=== PATIENT | female | born 1955 | race Caucasian/White ===

== ENCOUNTER 2018-08-21 12:17 | Inpatient (IN) | payer OTHER ==
[~2018-08-21] VITALS: Ht 152.4 cm; Wt 51.4 kg
[2018-08-21 16:05] LABS: BASOPHILS % 1.2 % (0.0-2.0); EOSINOPHILS % 0.9 % (0.0-5.0); HEMATOCRIT. 36.9 % (36.0-48.0); LYMPHOCYTES % 25.8 % (20.0-50.0); MEAN CORPUSCULAR HEMOGLOBIN 26.9 pg (28.0-32.0); MEAN CORPUSCULAR VOLUME 83.1 fL (81.0-99.0); MEAN PLATELET VOLUME 8.2 fl (7.4-10.4); MONOCYTES % 6.5 % (2.0-8.0); NEUTROPHILS % 65.6 % (40.0-76.0); PLATELET 283 x1000/uL (130-400); RED BLOOD CELL COUNT 4.44 mill/uL (4.2-5.4); RED CELL DISTRIBUTION WIDTH 21.2 % (11.6-14.6)
[2018-08-21 16:08] LABS: CHLORIDE 104 mEq/L (98-107)
[2018-08-21] MEDS ORDERED: FUROSEMIDE 100MG/10ML VIAL IV ONE (17:15)
[2018-08-21] MEDS ORDERED: INSULIN REGULAR (HUMULIN R) 300UNITS/3ML IV ONE (17:15)
[2018-08-21] MEDS ORDERED: SODIUM BICARBONATE 8.4% 1 MEQ/ML 50ML SYR IV ONE (17:15)
[2018-08-21] MEDS ORDERED: CALCIUM GLUCONATE 1,000 MG in DEXT 5% WATER 100 ML IV ONE (17:15)
[2018-08-21] MEDS ORDERED: DEXTROSE 50% WATER 50ML SYRINGE IV ONE (17:15)
[2018-08-21] MEDS ORDERED: ALBUTEROL (0.083%) 2.5MG/3ML NEB HHN SCH (17:30)
[2018-08-21] MEDS ORDERED: SODIUM POLYSTYRENE SULFONATE 15 G/60 ML BOT PO ONE (18:00)
[2018-08-21] MEDS ORDERED: ACETAMINOPHEN 325MG TABLET PO PRN (18:30)
[2018-08-21] MEDS ORDERED: DOCUSATE SODIUM 100MG CAPSULE PO PRN (18:30)
[2018-08-21] MEDS ORDERED: GUAIFENESIN 200MG/10ML SUGAR FREE UDC PO PRN (18:30)
[2018-08-21] MEDS ORDERED: HYDROCODONE/ACETAMINOPHEN 5/325MG TABLET PO PRN (18:30)
[2018-08-21] MEDS ORDERED: MAGNESIUM/ALUMINUM HYDROXIDE/SIMETHICONE 30ML UDC PO PRN (18:30)
[2018-08-21] MEDS ORDERED: ONDANSETRON HCL 4MG/2ML INJ IV PRN (18:30)
[2018-08-21] MEDS ORDERED: DIPHENHYDRAMINE 50MG/ML VIAL IV PRN (18:30)
[2018-08-21] MEDS ORDERED: CLONIDINE 0.1MG TABLET PO PRN (18:30)
[2018-08-21 19:14] LABS: PHOSPHORUS 5.4 mg/dL (2.5-4.9)
[2018-08-21] MEDS ORDERED: LIDOCAINE HCL 1% 20ML VIAL (Pyxis) INJ ONE (19:23)
[2018-08-21] MEDS ORDERED: SODIUM BICARBONATE 4% (2.4MEQ) 5ML VIAL IV ONE (19:24)
[2018-08-21 23:43] LABS: CREATINE KINASE MB FRACTION 2.4 ng/mL (0.5-3.6)
[2018-08-22] VITALS (23 sets, daily range): BP systolic 116–183; BP diastolic 44–69
[2018-08-22 09:44] LABS: BASOPHILS % 1.2 % (0.0-2.0); EOSINOPHILS % 1.1 % (0.0-5.0); HEMOGLOBIN. 10.5 g/dL (12.0-16.0); LYMPHOCYTES % 21.2 % (20.0-50.0); MEAN CORPUSCULAR HEMOGLOBIN 26.4 pg (28.0-32.0); MEAN CORPUSCULAR VOLUME 82.4 fL (81.0-99.0); MEAN PLATELET VOLUME 8.3 fl (7.4-10.4); MONOCYTES % 7.7 % (2.0-8.0); NEUTROPHILS % 68.8 % (40.0-76.0); PLATELET 238 x1000/uL (130-400); RED CELL DISTRIBUTION WIDTH 21.4 % (11.6-14.6)
[2018-08-22 10:04] LABS: CHLORIDE 107 mEq/L (98-107)
[2018-08-22 10:12] LABS: LDL CHOLESTEROL 111 mg/dL (5-100)
[2018-08-22 10:13] LABS: CREATINE KINASE 26 IU/L (26-192); HDL CHOLESTEROL 36 mg/dL (40-59)
[2018-08-22 10:15] LABS: CREATINE KINASE MB FRACTION 1.6 ng/mL (0.5-3.6)
[2018-08-22] MEDS ORDERED: CEFAZOLIN 1000MG PREMIX 50 ML IV ONE (10:45)
[2018-08-22] MEDS ORDERED: LIDOCAINE HCL 1% 20ML VIAL (Pyxis) INJ ONE (10:52)
[2018-08-22] MEDS ORDERED: FENTANYL CITRATE/PF 50MCG/ML 2ML VIAL ONE (10:52)
[2018-08-22] MEDS ORDERED: SODIUM BICARBONATE 4% (2.4MEQ) 5ML VIAL IV ONE (10:52)
[2018-08-22] MEDS ORDERED: HEPARIN 1000 UNITS/ML 10ML ONE (10:53)
[2018-08-22] MEDS ORDERED: IOHEXOL-300 100 ML BOTTLE ONE (10:53)
[2018-08-22] MEDS ORDERED: HEPARIN 5000 UNITS/ML VIAL IV NR (11:45)
[2018-08-22] MEDS ORDERED: HEPARIN 1000 UNITS/ML 10ML IV NR (11:46)
[2018-08-22] MEDS ORDERED: FENTANYL CITRATE/PF 50MCG/ML 2ML VIAL IV SCH (12:00)
[2018-08-22] MEDS ORDERED: ONDANSETRON HCL 4MG/2ML INJ ONE (12:32)
[2018-08-22] MEDS ORDERED: ONDANSETRON HCL 4MG/2ML INJ IV SCH (12:45)
[2018-08-23] VITALS: BP 125/51
[2018-08-23 04:00] VITALS: BP 129/53
[2018-08-23 06:39] LABS: BASOPHILS % 1.2 % (0.0-2.0); EOSINOPHILS % 1.3 % (0.0-5.0); HEMATOCRIT. 35.1 % (36.0-48.0); HEMOGLOBIN. 11.2 g/dL (12.0-16.0); LYMPHOCYTES % 25.2 % (20.0-50.0); MEAN CORPUSCULAR HEMOGLOBIN 26.7 pg (28.0-32.0); MEAN PLATELET VOLUME 8.1 fl (7.4-10.4); MONOCYTES % 7.3 % (2.0-8.0); PLATELET 226 x1000/uL (130-400); RED BLOOD CELL COUNT 4.18 mill/uL (4.2-5.4); RED CELL DISTRIBUTION WIDTH 22.1 % (11.6-14.6)
[2018-08-23] MEDS ORDERED: DEXTROSE 50% WATER 50ML SYRINGE IV PRN (06:45)
[2018-08-23] MEDS: BLOOD SUGAR DIAGNOSTIC STRIP TEST SCH ×2 (06:57→12:52)
[2018-08-23 08:00] VITALS: BP 141/55
[2018-08-23] MEDS: INSULIN LISPRO 100 UNITS/ML SUBCUT SCH ×2 (08:10→12:52)
[2018-08-23 12:00] VITALS: BP 130/52
[2018-08-23 16:36] VITALS: BP 130/52
== END 2018-08-23 17:09 | disposition home or self-care (01) | DRG 182 ==
LOC: ER 12:17 → 7WST 18:11 → EDBEDREQ 18:13 → ENRESERV 21:29
PROVIDERS: ADMIT Internal Medicine; ATTEND Internal Medicine
PROC: B54BZZA Ultrasonography of Right Lower Extremity Veins, Guidance (ICD-10-PCS; principal; 2018-08-21)
PROC: 06HY33Z Insertion of Infusion Device into Lower Vein, Percutaneous Approach (ICD-10-PCS; 2018-08-21)
PROC: 5A1D70Z Performance of Urinary Filtration, Intermittent, Less than 6 Hours Per Day (ICD-10-PCS; 2018-08-21)
PROC: 03C83ZZ Extirpation of Matter from Left Brachial Artery, Percutaneous Approach (ICD-10-PCS; 2018-08-22)
PROC: B5171ZZ Fluoroscopy of Left Subclavian Vein using Low Osmolar Contrast (ICD-10-PCS; 2018-08-22)
PROC: 05CF3ZZ Extirpation of Matter from Left Cephalic Vein, Percutaneous Approach (ICD-10-PCS; 2018-08-22)
PROC: B5181ZZ Fluoroscopy of Superior Vena Cava using Low Osmolar Contrast (ICD-10-PCS; 2018-08-22)
PROC: B5161ZZ Fluoroscopy of Right Subclavian Vein using Low Osmolar Contrast (ICD-10-PCS; 2018-08-22)
PROC: B31N1ZZ Fluoroscopy of Other Upper Arteries using Low Osmolar Contrast (ICD-10-PCS; 2018-08-22)
PROC: 03783ZZ Dilation of Left Brachial Artery, Percutaneous Approach (ICD-10-PCS; 2018-08-22)
PROC: 057F3ZZ Dilation of Left Cephalic Vein, Percutaneous Approach (ICD-10-PCS; 2018-08-22)
PROC: B51W1ZZ Fluoroscopy of Dialysis Shunt/Fistula using Low Osmolar Contrast (ICD-10-PCS; 2018-08-22)
PROC: B51V1ZZ Fluoroscopy of Other Veins using Low Osmolar Contrast (ICD-10-PCS; 2018-08-22)
PROC: 5A1D70Z Performance of Urinary Filtration, Intermittent, Less than 6 Hours Per Day (ICD-10-PCS; 2018-08-23)
DX: T82.868A Thrombosis due to vascular prosthetic devices, implants and grafts, initial encounter (principal); E11.22 Type 2 diabetes mellitus with diabetic chronic kidney disease; I12.0 Hypertensive chronic kidney disease with stage 5 chronic kidney disease or end stage renal disease; N18.6 End stage renal disease; E87.5 Hyperkalemia; E83.41 Hypermagnesemia; E78.00 Pure hypercholesterolemia, unspecified; E78.5 Hyperlipidemia, unspecified; E83.39 Other disorders of phosphorus metabolism; Y83.2 Surgical operation with anastomosis, bypass or graft as the cause of abnormal reaction of the patient, or of later complication, without mention of misadventure at the time of the procedure; Y92.89 Other specified places as the place of occurrence of the external cause; Z99.2 Dependence on renal dialysis; Z88.1 Allergy status to other antibiotic agents; Z88.8 Allergy status to other drugs, medicaments and biological substances
CPT/HCPCS: 36415; 36556; 36905; 71045; 76937; 80048; 80061; 82550; 82553; 82962; 83036; 83735; 84100; 84132; 84443; 86850; 86900; 93005; 93970; 96374; 96375; 99152; 99153; 99285; C1725; C1752; C1766; C1769; C1887; C2630; J0610; J0690; J1642; J1644; J1815; J1940; J2405; J3010; J3490; J7050; J7060; Q9967; G0500

== ENCOUNTER 2019-01-08 09:27 | Inpatient (IN) | payer OTHER ==
[~2019-01-08] VITALS: Ht 154.9 cm; Wt 48.6 kg
[2019-01-08 10:06] LABS: BASOPHILS % 1.4 % (0.0-2.0); EOSINOPHILS % 0.7 % (0.0-5.0); HEMATOCRIT. 32.7 % (36.0-48.0); HEMOGLOBIN. 10.7 g/dL (12.0-16.0); LYMPHOCYTES % 18.2 % (20.0-50.0); MEAN CORPUSCULAR HEMOGLOBIN 26.9 pg (28.0-32.0); MEAN CORPUSCULAR VOLUME 81.7 fL (81.0-99.0); MEAN PLATELET VOLUME 8.6 fl (7.4-10.4); NEUTROPHILS % 75.7 % (40.0-76.0); PLATELET 250 x1000/uL (130-400); RED CELL DISTRIBUTION WIDTH 20.4 % (11.6-14.6)
[2019-01-08 10:11] LABS: CHLORIDE 103 mEq/L (98-107)
[2019-01-08 10:13] LABS: PROTHROMBIN TIME 10.5 sec (9.6-11.0)
[2019-01-08] MEDS ORDERED: INSULIN REGULAR (HUMULIN R) 300UNITS/3ML IV ONE (10:30)
[2019-01-08] MEDS ORDERED: SODIUM BICARBONATE 8.4% 1 MEQ/ML 50ML SYR IV ONE (10:30)
[2019-01-08] MEDS ORDERED: ALBUTEROL (0.083%) 2.5MG/3ML NEB HHN ONE (10:30)
[2019-01-08] MEDS ORDERED: CALCIUM CHLORIDE 1GM/10ML SYR IV ONE (10:30)
[2019-01-08] MEDS ORDERED: DEXTROSE 50% WATER 50ML SYRINGE IV ONE ×2 (10:30→12:33)
[2019-01-08 15:42] VITALS: BP 142/52
[2019-01-08 16:00] VITALS: BP 139/64
[2019-01-08] MEDS ORDERED: AMLO10TA80 MT (17:46)
[2019-01-08] MEDS ORDERED: CINA90TA MT (17:46)
[2019-01-08] MEDS ORDERED: OMEG100016 PO (17:46)
[2019-01-08] MEDS ORDERED: REN800 PO (17:46)
[2019-01-08] MEDS ORDERED: METO-539 MT (17:47)
[2019-01-08 18:00] VITALS: BP 129/62
[2019-01-08] MEDS ORDERED: MAGNESIUM/ALUMINUM HYDROXIDE/SIMETHICONE 30ML UDC PO PRN (18:00)
[2019-01-08] MEDS ORDERED: ONDANSETRON HCL 4MG/2ML INJ IV PRN (18:00)
[2019-01-08] MEDS ORDERED: IPRATROPIUM/ALBUTEROL 0.5-3(2.5)MG/3ML NEB HHN PRN (18:00)
[2019-01-08] MEDS ORDERED: HYDROCODONE/ACETAMINOPHEN 5/325MG TABLET PO PRN (18:00)
[2019-01-08] MEDS ORDERED: ACETAMINOPHEN 325MG TABLET PO PRN (18:00)
[2019-01-08] MEDS ORDERED: DOCUSATE SODIUM 100MG CAPSULE PO PRN (18:00)
[2019-01-08] MEDS ORDERED: LORAZEPAM 0.5MG TABLET PO PRN (18:00)
[2019-01-08 20:00] VITALS: BP 142/73
[2019-01-08 22:00] VITALS: BP 130/55
[2019-01-09] VITALS (28 sets, daily range): BP systolic 117–157; BP diastolic 51–69
[2019-01-09 07:03] LABS: EOSINOPHILS % 0.8 % (0.0-5.0); HEMATOCRIT. 27.6 % (36.0-48.0); HEMOGLOBIN. 9.1 g/dL (12.0-16.0); LYMPHOCYTES % 19.8 % (20.0-50.0); MEAN CORPUSCULAR HEMOGLOBIN 26.8 pg (28.0-32.0); MEAN CORPUSCULAR VOLUME 81.1 fL (81.0-99.0); MEAN PLATELET VOLUME 8.7 fl (7.4-10.4); MONOCYTES % 7.3 % (2.0-8.0); NEUTROPHILS % 71.1 % (40.0-76.0); PLATELET 185 x1000/uL (130-400); RED CELL DISTRIBUTION WIDTH 19.8 % (11.6-14.6)
[2019-01-09] MEDS: SEVELAMER CARBONATE 800 MG TABLET PO SCH ×2 (07:20→12:20)
[2019-01-09] MEDS ORDERED: LIDOCAINE HCL 1% 20ML VIAL (Pyxis) INJ ONE (07:38)
[2019-01-09] MEDS ORDERED: IOHEXOL-300 100 ML BOTTLE ONE (07:38)
[2019-01-09] MEDS ORDERED: SODIUM BICARBONATE 4% (2.4MEQ) 5ML VIAL IV ONE (07:38)
[2019-01-09] MEDS ORDERED: CEFAZOLIN 1000MG PREMIX 50 ML IV NR (08:00)
[2019-01-09] MEDS ORDERED: HEPARIN 1000 UNITS/ML 10ML ONE (08:05)
[2019-01-09] MEDS ORDERED: CEFAZOLIN 1000MG PREMIX 50 ML IV ONE (08:10)
[2019-01-09] MEDS ORDERED: FENTANYL CITRATE/PF 50MCG/ML 2ML VIAL ONE (08:11)
[2019-01-09] MEDS ORDERED: AMLODIPINE 10MG TABLET PO SCH (09:00)
[2019-01-09] MEDS ORDERED: HEPARIN 5000 UNITS/ML VIAL IV ONE (09:00)
[2019-01-09] MEDS ORDERED: METOPROLOL TARTRATE 50MG TABLET PO SCH (09:00)
[2019-01-09] MEDS ORDERED: CINACALCET HCL 90MG TABLET PO SCH (09:00)
[2019-01-09] MEDS ORDERED: ONDANSETRON HCL 4MG/2ML INJ ONE (09:19)
[2019-01-09] MEDS ORDERED: ONDANSETRON HCL 4MG/2ML INJ IV NR (09:30)
[2019-01-09] MEDS ORDERED: FENTANYL CITRATE/PF 50MCG/ML 2ML VIAL IV NR (09:30)
== END 2019-01-09 15:50 | disposition home or self-care (01) | DRG 182 ==
LOC: ER 09:27 → 3WST 10:49 → EDBEDREQTM 10:56 → ENRESERV 14:43
PROVIDERS: ADMIT Internal Medicine; ATTEND Internal Medicine
PROC: 5A1D70Z Performance of Urinary Filtration, Intermittent, Less than 6 Hours Per Day (ICD-10-PCS; principal; 2019-01-08)
PROC: 06HY33Z Insertion of Infusion Device into Lower Vein, Percutaneous Approach (ICD-10-PCS; 2019-01-08)
PROC: B54BZZA Ultrasonography of Right Lower Extremity Veins, Guidance (ICD-10-PCS; 2019-01-08)
PROC: B51W1ZZ Fluoroscopy of Dialysis Shunt/Fistula using Low Osmolar Contrast (ICD-10-PCS; 2019-01-09)
PROC: 03C83ZZ Extirpation of Matter from Left Brachial Artery, Percutaneous Approach (ICD-10-PCS; 2019-01-09)
PROC: 057A3ZZ Dilation of Left Brachial Vein, Percutaneous Approach (ICD-10-PCS; 2019-01-09)
PROC: B51N1ZZ Fluoroscopy of Left Upper Extremity Veins using Low Osmolar Contrast (ICD-10-PCS; 2019-01-09)
PROC: B5181ZZ Fluoroscopy of Superior Vena Cava using Low Osmolar Contrast (ICD-10-PCS; 2019-01-09)
PROC: B31J1ZZ Fluoroscopy of Left Upper Extremity Arteries using Low Osmolar Contrast (ICD-10-PCS; 2019-01-09)
PROC: 05CA3ZZ Extirpation of Matter from Left Brachial Vein, Percutaneous Approach (ICD-10-PCS; 2019-01-09)
DX: T82.868A Thrombosis due to vascular prosthetic devices, implants and grafts, initial encounter (principal); E87.2 Acidosis; E83.51 Hypocalcemia; E87.1 Hypo-osmolality and hyponatremia; I12.0 Hypertensive chronic kidney disease with stage 5 chronic kidney disease or end stage renal disease; N18.6 End stage renal disease; D64.9 Anemia, unspecified; E78.5 Hyperlipidemia, unspecified; E87.5 Hyperkalemia; T82.858A Stenosis of other vascular prosthetic devices, implants and grafts, initial encounter; E16.2 Hypoglycemia, unspecified; Y83.2 Surgical operation with anastomosis, bypass or graft as the cause of abnormal reaction of the patient, or of later complication, without mention of misadventure at the time of the procedure; Y92.89 Other specified places as the place of occurrence of the external cause; Z99.2 Dependence on renal dialysis; Z88.1 Allergy status to other antibiotic agents; Z68.20 Body mass index [BMI] 20.0-20.9, adult
CPT/HCPCS: 36415; 36905; 76937; 80048; 82962; 84132; 93005; 99152; 99153; 99291; C1725; C1752; C1766; C1769; C2630; J0690; J1644; J1815; J2405; J3010; J3490; J7611; Q9967; G0500

== ENCOUNTER 2019-05-28 15:47 | Inpatient (IN) | payer OTHER ==
[~2019-05-28] VITALS: Ht 154.9 cm; Wt 47.4 kg
[~2019-05-28 15:47] MED LIST: AMLO10TA80 MT; CINA90TA MT; METO-539 MT; OMEG100016 PO; REN800 PO
[2019-05-28 17:29] LABS: BASOPHILS % 1.1 % (0.0-2.0); EOSINOPHILS % 1.1 % (0.0-5.0); HEMATOCRIT. 30.5 % (36.0-48.0); HEMOGLOBIN. 9.9 g/dL (12.0-16.0); MEAN CORPUSCULAR HEMOGLOBIN 28.2 pg (28.0-32.0); MEAN CORPUSCULAR VOLUME 86.4 fL (81.0-99.0); MEAN PLATELET VOLUME 9.1 fl (7.4-10.4); MONOCYTES % 6.4 % (2.0-8.0); NEUTROPHILS % 72.4 % (40.0-76.0); PLATELET 253 x1000/uL (130-400); RED BLOOD CELL COUNT 3.53 mill/uL (4.2-5.4); RED CELL DISTRIBUTION WIDTH 15.6 % (11.6-14.6)
[2019-05-28 17:41] LABS: PROTHROMBIN TIME 10.2 sec (9.6-11.0)
[2019-05-28] MEDS ORDERED: DEXTROSE 50% WATER 50ML SYRINGE IV ONE (18:00)
[2019-05-28] MEDS ORDERED: ALBUTEROL (0.083%) 2.5MG/3ML NEB HHN ONE (18:00)
[2019-05-28] MEDS ORDERED: SODIUM BICARBONATE 8.4% 1 MEQ/ML 50ML SYR IV ONE (18:00)
[2019-05-28] MEDS ORDERED: INSULIN REGULAR (HUMULIN R) 300UNITS/3ML IV ONE (18:00)
[2019-05-28] MEDS ORDERED: SODIUM POLYSTYRENE SULFONATE 15 G/60 ML BOT PO NR (18:00)
[2019-05-28] MEDS ORDERED: CALCIUM CHLORIDE 1GM/10ML SYR IV ONE (18:00)
[2019-05-28] MEDS ORDERED: SODIUM POLYSTYRENE SULFONATE 15 G/60 ML BOT PO ONE (18:15)
[2019-05-28] MEDS ORDERED: MAGNESIUM/ALUMINUM HYDROXIDE/SIMETHICONE 30ML UDC PO PRN (18:45)
[2019-05-28] MEDS ORDERED: CLONIDINE 0.1MG TABLET PO PRN (18:45)
[2019-05-28] MEDS ORDERED: HYDROCODONE/ACETAMINOPHEN 5/325MG TABLET PO PRN (18:45)
[2019-05-28] MEDS ORDERED: ONDANSETRON HCL 4MG/2ML INJ IV PRN (18:45)
[2019-05-28] MEDS ORDERED: ACETAMINOPHEN 325MG TABLET PO PRN (18:45)
[2019-05-28] MEDS ORDERED: DOCUSATE SODIUM 100MG CAPSULE PO PRN (18:45)
[2019-05-28] MEDS ORDERED: MORPHINE SULFATE 2 MG/ML CPJ (NOT FOR IM USE) IV PRN (19:20)
[2019-05-28] MEDS: AMLODIPINE 10MG TABLET PO SCH (23:14)
[2019-05-29] VITALS (20 sets, daily range): BP systolic 25–158; BP diastolic 47–65
[2019-05-29] MEDS ORDERED: ALBUTEROL (0.083%) 2.5MG/3ML NEB HHN ONE (02:15)
[2019-05-29 05:08] LABS: BASOPHILS % 0.8 % (0.0-2.0); EOSINOPHILS % 0.2 % (0.0-5.0); HEMATOCRIT. 26.7 % (36.0-48.0); HEMOGLOBIN. 8.8 g/dL (12.0-16.0); LYMPHOCYTES % 17.3 % (20.0-50.0); MEAN CORPUSCULAR HEMOGLOBIN 28.5 pg (28.0-32.0); MEAN CORPUSCULAR VOLUME 86.9 fL (81.0-99.0); MEAN PLATELET VOLUME 8.9 fl (7.4-10.4); MONOCYTES % 5.6 % (2.0-8.0); NEUTROPHILS % 76.1 % (40.0-76.0); PLATELET 227 x1000/uL (130-400); RED BLOOD CELL COUNT 3.07 mill/uL (4.2-5.4); RED CELL DISTRIBUTION WIDTH 15.4 % (11.6-14.6)
[2019-05-29 05:13] LABS: CHLORIDE 109 mEq/L (98-107)
[2019-05-29 05:21] LABS: LDL CHOLESTEROL 64 mg/dL (5-100)
[2019-05-29 05:24] LABS: HDL CHOLESTEROL 31 mg/dL (40-59)
[2019-05-29] MEDS: AMLODIPINE 10MG TABLET PO SCH (12:30)
[2019-05-29] MEDS ORDERED: MOXI3DRO12 RIGHTEYE (12:35)
[2019-05-29] MEDS ORDERED: OFLO5DRO3 RIGHTEYE (12:35)
[2019-05-29] MEDS ORDERED: KETO5DRO80 RIGHTEYE (12:35)
[2019-05-29] MEDS ORDERED: PRED5DRO22 RIGHTEYE (12:35)
[2019-05-29] MEDS ORDERED: MEDICATION NOT ON FORMULARY EA (Moxifloxacin HCl (Moxifloxacin) 1 DROP) RIGHTEYE SCH (13:00)
[2019-05-29] MEDS ORDERED: OFLOXACIN RIGHTEYE SCH (13:00)
[2019-05-29] MEDS ORDERED: CEFAZOLIN 1000MG PREMIX 50 ML IV ONE (13:15)
[2019-05-29] MEDS ORDERED: FENTANYL CITRATE/PF 50MCG/ML 2ML VIAL ONE (13:15)
[2019-05-29] MEDS ORDERED: SODIUM BICARBONATE 4% (2.4MEQ) 5ML VIAL IV ONE (13:19)
[2019-05-29] MEDS ORDERED: IOHEXOL-300 100 ML BOTTLE ONE ×2 (13:19→14:06)
[2019-05-29] MEDS ORDERED: LIDOCAINE HCL 1% 20ML VIAL (Pyxis) INJ ONE (13:19)
[2019-05-29] MEDS ORDERED: CEFAZOLIN 1000MG PREMIX 50 ML IV SCH (13:45)
[2019-05-29] MEDS ORDERED: IOHEXOL-300 50 ML BOTTLE IV ONE (14:36)
[2019-05-29] MEDS ORDERED: FENTANYL CITRATE/PF 50MCG/ML 2ML VIAL IV ONE (14:45)
[2019-05-29] MEDS: KETOROLAC TROMETHAMINE 0.4% OPHTH 5ML RIGHTEYE SCH ×3 (15:16→22:36)
[2019-05-29] MEDS: MOXIFLOXACIN 0.5% RIGHTEYE SCH ×2 (15:17→22:41)
[2019-05-29] MEDS: PREDNISOLONE ACETATE 1% OPHTH DROPS 5ML RIGHTEYE SCH ×2 (17:50→22:36)
[2019-05-30] VITALS (7 sets, daily range): BP systolic 95–139; BP diastolic 50–69
[2019-05-30] MEDS: MOXIFLOXACIN 0.5% RIGHTEYE SCH ×2 (06:49→13:33)
[2019-05-30] MEDS: AMLODIPINE 10MG TABLET PO SCH (09:09)
[2019-05-30] MEDS: PREDNISOLONE ACETATE 1% OPHTH DROPS 5ML RIGHTEYE SCH ×3 (09:10→18:45)
[2019-05-30] MEDS: KETOROLAC TROMETHAMINE 0.4% OPHTH 5ML RIGHTEYE SCH ×3 (09:11→18:44)
[2019-05-30] MEDS: CALCIUM ACETATE 667MG CAPSULE PO SCH ×2 (18:45→22:08)
[2019-05-30] MEDS ORDERED: EPOETIN ALFA 4000UNITS/ML VIAL SUBCUT SCH (21:00)
== END 2019-05-30 23:45 | disposition home or self-care (01) | DRG 182 ==
LOC: ER 15:47 → 6WST 19:56 → EDBEDREQSVC 05-29 08:24 → ENRESERV 05-29 09:54
PROVIDERS: ADMIT Hospitalist; ATTEND Hospitalist
PROC: 05CA3ZZ Extirpation of Matter from Left Brachial Vein, Percutaneous Approach (ICD-10-PCS; principal; 2019-05-29)
PROC: B51W1ZZ Fluoroscopy of Dialysis Shunt/Fistula using Low Osmolar Contrast (ICD-10-PCS; 2019-05-29)
PROC: 057A3DZ Dilation of Left Brachial Vein with Intraluminal Device, Percutaneous Approach (ICD-10-PCS; 2019-05-29)
PROC: 5A1D70Z Performance of Urinary Filtration, Intermittent, Less than 6 Hours Per Day (ICD-10-PCS; 2019-05-29)
PROC: 5A1D70Z Performance of Urinary Filtration, Intermittent, Less than 6 Hours Per Day (ICD-10-PCS; 2019-05-30)
DX: T82.868A Thrombosis due to vascular prosthetic devices, implants and grafts, initial encounter (principal); I13.2 Hypertensive heart and chronic kidney disease with heart failure and with stage 5 chronic kidney disease, or end stage renal disease; E87.5 Hyperkalemia; N18.6 End stage renal disease; I50.33 Acute on chronic diastolic (congestive) heart failure; D63.1 Anemia in chronic kidney disease; E78.1 Pure hyperglyceridemia; E78.5 Hyperlipidemia, unspecified; E78.00 Pure hypercholesterolemia, unspecified; Y83.2 Surgical operation with anastomosis, bypass or graft as the cause of abnormal reaction of the patient, or of later complication, without mention of misadventure at the time of the procedure; N25.81 Secondary hyperparathyroidism of renal origin; Z88.8 Allergy status to other drugs, medicaments and biological substances; Z99.2 Dependence on renal dialysis; Z79.899 Other long term (current) drug therapy; Y92.89 Other specified places as the place of occurrence of the external cause
CPT/HCPCS: 36415; 36906; 71045; 76937; 80048; 80053; 80061; 82962; 85025; 93005; 93971; 94644; 96365; 99152; 99153; 99291; C1725; C1766; C1769; C1876; C1887; C2630; J0690; J0885; J1644; J1815; J3010; J3490; Q9967; G0500

== ENCOUNTER 2020-01-16 16:04 | Inpatient (IN) | payer MEDICAID, OTHER ==
[~2020-01-16] VITALS: Ht 152.4 cm; Wt 45.9 kg
[~2020-01-16 16:04] MED LIST changes: +KETO5DRO80 RIGHTEYE; +MOXI3DRO12 RIGHTEYE; +OFLO5DRO3 RIGHTEYE; +PRED5DRO22 RIGHTEYE
[2020-01-16 16:45] LABS: BASOPHILS % 1.3 % (0.0-2.0); EOSINOPHILS % 1.6 % (0.0-5.0); HEMATOCRIT. 34.8 % (36.0-48.0); HEMOGLOBIN. 11.2 g/dL (12.0-16.0); MEAN CORPUSCULAR HEMOGLOBIN 25.4 pg (28.0-32.0); MEAN CORPUSCULAR VOLUME 78.8 fL (81.0-99.0); MEAN PLATELET VOLUME 8.3 fl (7.4-10.4); MONOCYTES % 7.1 % (2.0-8.0); PLATELET 295 x1000/uL (130-400); RED BLOOD CELL COUNT 4.41 mill/uL (4.2-5.4); RED CELL DISTRIBUTION WIDTH 17.8 % (11.6-14.6)
[2020-01-16 16:56] LABS: PROTHROMBIN TIME 10.7 sec (9.6-11.0)
[2020-01-16 17:12] LABS: CHLORIDE 100 mEq/L (98-107)
[2020-01-16] MEDS ORDERED: SODIUM POLYSTYRENE SULFONATE 15 G/60 ML BOT PO ONE (17:45)
[2020-01-16] MEDS ORDERED: SODIUM BICARBONATE 8.4% 1 MEQ/ML 50ML SYR IV ONE (17:45)
[2020-01-16] MEDS ORDERED: INSULIN REGULAR (HUMULIN R) 300UNITS/3ML IV ONE (17:45)
[2020-01-16] MEDS ORDERED: DEXTROSE 50% WATER 50ML SYRINGE IV ONE (17:45)
[2020-01-16] MEDS ORDERED: ALBUTEROL (0.083%) 2.5MG/3ML NEB HHN ONE (17:45)
[2020-01-16 21:34] VITALS: BP 161/75
[2020-01-16] MEDS ORDERED: OMEP20CA14 PO (23:42)
[2020-01-16] MEDS ORDERED: REN800 PO (23:42)
[2020-01-16] MEDS ORDERED: LOSA50TA41 PO (23:42)
[2020-01-16] MEDS ORDERED: OFLO5DRO3 RIGHTEYE (23:42)
[2020-01-17] VITALS (21 sets, daily range): BP systolic 110–194; BP diastolic 52–83
[2020-01-17] MEDS ORDERED: CLONIDINE 0.1MG TABLET PO PRN (00:45)
[2020-01-17] MEDS ORDERED: CLONIDINE 0.2MG TABLET PO PRN (05:16)
[2020-01-17 06:16] LABS: BASOPHILS % 1.1 % (0.0-2.0); EOSINOPHILS % 1.6 % (0.0-5.0); HEMATOCRIT. 31.8 % (36.0-48.0); HEMOGLOBIN. 10.1 g/dL (12.0-16.0); MEAN CORPUSCULAR HEMOGLOBIN 25.5 pg (28.0-32.0); MEAN CORPUSCULAR VOLUME 80.1 fL (81.0-99.0); MEAN PLATELET VOLUME 8.8 fl (7.4-10.4); MONOCYTES % 6.8 % (2.0-8.0); NEUTROPHILS % 66.5 % (40.0-76.0); PLATELET 260 x1000/uL (130-400); RED BLOOD CELL COUNT 3.97 mill/uL (4.2-5.4); RED CELL DISTRIBUTION WIDTH 17.8 % (11.6-14.6)
[2020-01-17] MEDS: SEVELAMER CARBONATE 800 MG TABLET PO SCH ×3 (08:00→17:32)
[2020-01-17] MEDS: KETOROLAC TROMETHAMINE 0.4% OPHTH 5ML RIGHTEYE SCH ×4 (09:00→22:07)
[2020-01-17] MEDS ORDERED: CINACALCET HCL 30MG TABLET PO SCH (09:00)
[2020-01-17] MEDS ORDERED: METOPROLOL TARTRATE 50MG TABLET PO SCH (09:00)
[2020-01-17] MEDS: PREDNISOLONE ACETATE 1% OPHTH DROPS 5ML RIGHTEYE SCH ×4 (09:00→22:07)
[2020-01-17] MEDS: AMLODIPINE 10MG TABLET PO SCH (09:00)
[2020-01-17] MEDS ORDERED: CEFAZOLIN 1000MG PREMIX 50 ML IV ONE ×2 (09:45→10:01)
[2020-01-17] MEDS ORDERED: FENTANYL CITRATE/PF 50MCG/ML 2ML VIAL ONE (10:01)
[2020-01-17] MEDS ORDERED: LIDOCAINE HCL 1% 20ML VIAL (Pyxis) INJ ONE (10:09)
[2020-01-17] MEDS ORDERED: IOHEXOL-300 100 ML BOTTLE ONE (10:09)
[2020-01-17] MEDS ORDERED: HEPARIN 1000 UNITS/ML 10ML ONE (10:09)
[2020-01-17] MEDS ORDERED: SODIUM BICARBONATE 4% (2.4MEQ) 5ML VIAL IV ONE (10:09)
[2020-01-17] MEDS ORDERED: HEPARIN 5000 UNITS/ML VIAL IV ONE (10:45)
[2020-01-17] MEDS ORDERED: FENTANYL CITRATE/PF 50MCG/ML 2ML VIAL IV ONE (11:15)
[2020-01-17] MEDS ORDERED: CINACALCET HCL 30MG TABLET PO NR (12:00)
[2020-01-17] MEDS ORDERED: METOPROLOL TARTRATE 25MG TABLET PO SCH (12:00)
[2020-01-17] MEDS: LOSARTAN POTASSIUM 50 MG TABLET PO SCH (17:32)
[2020-01-17] MEDS ORDERED: DIPHENHYDRAMINE 50MG CAPSULE PO PRN (19:45)
[2020-01-17] MEDS ORDERED: ACETAMINOPHEN 325MG TABLET PO PRN (19:45)
[2020-01-18] VITALS (7 sets, daily range): BP systolic 110–133; BP diastolic 48–73
[2020-01-18] MEDS: SEVELAMER CARBONATE 800 MG TABLET PO SCH ×2 (08:37→13:00)
[2020-01-18] MEDS: KETOROLAC TROMETHAMINE 0.4% OPHTH 5ML RIGHTEYE SCH ×2 (08:38→13:43)
[2020-01-18] MEDS: PREDNISOLONE ACETATE 1% OPHTH DROPS 5ML RIGHTEYE SCH ×2 (08:38→13:44)
[2020-01-18] MEDS: AMLODIPINE 10MG TABLET PO SCH (08:38)
[2020-01-18] MEDS: LOSARTAN POTASSIUM 50 MG TABLET PO SCH (08:38)
[2020-01-18] MEDS ORDERED: CINACALCET HCL 90MG TABLET PO SCH (09:00)
[2020-01-18] MEDS ORDERED: CINACALCET HCL 30MG TABLET PO SCH (09:00)
== END 2020-01-18 18:16 | disposition home or self-care (01) | DRG 182 ==
LOC: ER 16:04 → EDBEDREQTM 17:39 → EDBEDREQ 17:39 → 5EST 20:00 → EDBEDREQ 20:02 → EDBEDREQTM 20:02 → ENRESERV 20:59
PROVIDERS: ADMIT Internal Medicine; ATTEND Internal Medicine
PROC: 5A1D70Z Performance of Urinary Filtration, Intermittent, Less than 6 Hours Per Day (ICD-10-PCS; principal; 2020-01-17)
PROC: 027V3ZZ Dilation of Superior Vena Cava, Percutaneous Approach (ICD-10-PCS; 2020-01-17)
PROC: B5181ZZ Fluoroscopy of Superior Vena Cava using Low Osmolar Contrast (ICD-10-PCS; 2020-01-17)
DX: T82.41XA Breakdown (mechanical) of vascular dialysis catheter, initial encounter (principal); N18.6 End stage renal disease; E87.5 Hyperkalemia; E87.1 Hypo-osmolality and hyponatremia; D63.8 Anemia in other chronic diseases classified elsewhere; I12.0 Hypertensive chronic kidney disease with stage 5 chronic kidney disease or end stage renal disease; E78.5 Hyperlipidemia, unspecified; E78.00 Pure hypercholesterolemia, unspecified; Z99.2 Dependence on renal dialysis; Z88.8 Allergy status to other drugs, medicaments and biological substances; Z79.2 Long term (current) use of antibiotics; Z79.899 Other long term (current) drug therapy; Y92.89 Other specified places as the place of occurrence of the external cause; N25.81 Secondary hyperparathyroidism of renal origin
CPT/HCPCS: 36415; 36905; 71045; 76937; 80048; 80053; 85025; 86850; 86900; 93005; 99152; 99153; 99285; C1725; C1766; C1769; C2630; J0690; J1644; J1815; J3010; J3490; Q9967; G0500

== ENCOUNTER 2020-07-02 18:58 | Inpatient (IN) | payer MEDICAID, OTHER ==
[~2020-07-02] VITALS: Ht 154.9 cm; Wt 44.0 kg
[~2020-07-02 18:58] MED LIST changes: +LOSA50TA41 PO; -METO-539 MT; -OMEG100016 PO; +OMEP20CA14 PO
[2020-07-02] MEDS ORDERED: TRANEXAMIC ACID 1,000 MG/10 ML IV ONE (19:30)
[2020-07-02 19:57] LABS: BASOPHILS % 1.3 % (0.0-2.0); EOSINOPHILS % 3.8 % (0.0-5.0); HEMATOCRIT. 26.3 % (36.0-48.0); LYMPHOCYTES % 19.1 % (20.0-50.0); MEAN CORPUSCULAR HEMOGLOBIN 28.8 pg (28.0-32.0); MEAN CORPUSCULAR VOLUME 84.9 fL (81.0-99.0); MONOCYTES % 8.8 % (2.0-8.0); PLATELET 236 x1000/uL (130-400); RED CELL DISTRIBUTION WIDTH 18.7 % (11.6-14.6)
[2020-07-02 20:02] LABS: CHLORIDE 102 mEq/L (98-107)
[2020-07-02 20:04] LABS: PARTIAL THROMBOPLASTIN TIME 27.2 sec (23.4-31.0); PROTHROMBIN TIME 10.3 sec (9.6-11.0)
[2020-07-02 22:35] VITALS: BP 189/73
[2020-07-02] MEDS ORDERED: MORPHINE SULFATE 2 MG/ML CPJ (NOT FOR IM USE) IV PRN (23:15)
[2020-07-02] MEDS ORDERED: ONDANSETRON HCL 4MG/2ML INJ IV PRN (23:15)
[2020-07-02] MEDS ORDERED: ACETAMINOPHEN 325MG TABLET PO PRN ×2 (23:15→23:59)
[2020-07-02] MEDS ORDERED: CLONIDINE 0.1MG TABLET PO PRN (23:15)
[2020-07-02 23:16] VITALS: BP 169/90
[2020-07-02 23:31] VITALS: BP 170/54
[2020-07-02 23:45] VITALS: BP 148/52
[2020-07-03] VITALS (59 sets, daily range): BP systolic 120–199; BP diastolic 35–131
[2020-07-03] MEDS ORDERED: CLONIDINE 0.1MG TABLET PO PRN
[2020-07-03] MEDS: AMLODIPINE 10MG TABLET PO SCH ×2 (00:22→08:06)
[2020-07-03] MEDS: FOLIC ACID/VITAMIN B COMP W-C TABLET PO SCH ×2 (00:22→08:05)
[2020-07-03] MEDS: HYDROCODONE/ACETAMINOPHEN 5/325MG TABLET PO PRN ×2 (00:23→05:28)
[2020-07-03] MEDS: SEVELAMER CARBONATE 800 MG TABLET PO SCH ×4 (00:26→17:53)
[2020-07-03] MEDS: MORPHINE SULFATE 2 MG/ML CPJ (NOT FOR IM USE) IV PRN ×2 (01:36→06:13)
[2020-07-03 05:02] LABS: EOSINOPHILS % 3.4 % (0.0-5.0); HEMOGLOBIN. 8.9 g/dL (12.0-16.0); LYMPHOCYTES % 16.7 % (20.0-50.0); MEAN CORPUSCULAR VOLUME 84.7 fL (81.0-99.0); MEAN PLATELET VOLUME 8.1 fl (7.4-10.4); MONOCYTES % 6.4 % (2.0-8.0); NEUTROPHILS % 72.5 % (40.0-76.0); PLATELET 226 x1000/uL (130-400); RED BLOOD CELL COUNT 3.07 mill/uL (4.2-5.4); RED CELL DISTRIBUTION WIDTH 18.1 % (11.6-14.6)
[2020-07-03 05:31] LABS: PHOSPHORUS 5.5 mg/dL (2.5-4.9)
[2020-07-03] MEDS: DOCUSATE SODIUM 100MG CAPSULE PO SCH ×2 (08:06→17:53)
[2020-07-03] MEDS ORDERED: SEVELAMER CARBONATE 800 MG TABLET PO SCH (09:00)
[2020-07-03] MEDS: LOSARTAN POTASSIUM 100 MG TABLET PO SCH (12:35)
[2020-07-03] MEDS: CINACALCET HCL 30MG TABLET PO SCH (17:54)
[2020-07-04] VITALS (7 sets, daily range): BP systolic 128–156; BP diastolic 56–80
[2020-07-04] MEDS: CINACALCET HCL 30MG TABLET PO SCH (07:40)
[2020-07-04] MEDS: SEVELAMER CARBONATE 800 MG TABLET PO SCH ×3 (07:40→18:29)
[2020-07-04 07:53] LABS: HEMATOCRIT 23.6 % (36.0-48.0); HEMOGLOBIN 7.9 g/dL (12.0-16.0); MEAN CORPUSCULAR HEMOGLOBIN 28.7 pg (28.0-32.0); MEAN CORPUSCULAR VOLUME 85.8 fL (81.0-99.0); PLATELET 218 x1000/uL (130-400); RED BLOOD CELL COUNT 2.75 mill/uL (4.2-5.4)
[2020-07-04 07:57] LABS: CHLORIDE 96 mEq/L (98-107)
[2020-07-04] MEDS ORDERED: THROMBIN (BOVINE) 5000 UNITS/VIAL TOP ONE (08:04)
[2020-07-04] MEDS ORDERED: BACITRACIN 15GM TUBE TOP ONE (08:04)
[2020-07-04] MEDS ORDERED: LIDOCAINE HCL 1% 20ML VIAL (Pyxis) INJ ONE (08:04)
[2020-07-04] MEDS ORDERED: BACITRACIN 50,000 UNITS/VIAL ONE (08:05)
[2020-07-04] MEDS ORDERED: SODIUM CHLORIDE 0.9% 250 ML IV ONE (08:05)
[2020-07-04] MEDS ORDERED: SODIUM CHLORIDE 0.9% INJ 10ML FLUSH IVF ONE (08:05)
[2020-07-04] MEDS ORDERED: SODIUM CHLORIDE 0.9% 1,000 ML ONE (08:05)
[2020-07-04] MEDS ORDERED: SODIUM CHLORIDE 0.9% IRRIG SOL 1,000 ML IR ONE (08:05)
[2020-07-04] MEDS ORDERED: HEPARIN SODIUM 1,000 UNIT/1ML VIAL IV ONE (08:06)
[2020-07-04] MEDS ORDERED: BUPIVACAINE HCL/PF 0.5% (5MG/ML) 10ML ONE (08:06)
[2020-07-04] MEDS: LOSARTAN POTASSIUM 100 MG TABLET PO SCH (09:00)
[2020-07-04] MEDS: DOCUSATE SODIUM 100MG CAPSULE PO SCH ×2 (09:00→18:29)
[2020-07-04] MEDS: AMLODIPINE 10MG TABLET PO SCH (09:00)
[2020-07-04] MEDS: FOLIC ACID/VITAMIN B COMP W-C TABLET PO SCH (09:00)
[2020-07-04] MEDS ORDERED: MORPHINE SULFATE 2 MG/ML CPJ (NOT FOR IM USE) IV PRN (12:00)
[2020-07-04] MEDS ORDERED: ROPIVACAINE HCL 10MG/ML 20 ML VIAL EPI ONE ×2 (12:03→12:04)
[2020-07-04] MEDS ORDERED: MIDAZOLAM HCL 2 MG/2 ML VIAL ONE (12:11)
[2020-07-04] MEDS ORDERED: PROPOFOL 200MG/20ML VIAL IV ONE (12:11)
[2020-07-04] MEDS ORDERED: FENTANYL CITRATE/PF 50MCG/ML 2ML VIAL ONE (12:11)
[2020-07-04] MEDS ORDERED: DEXAMETHASONE 4MG/ML 1ML VIAL ONE (12:33)
[2020-07-04] MEDS ORDERED: CEFAZOLIN SODIUM 1000MG/VIAL ONE (12:33)
[2020-07-04] MEDS ORDERED: LIDOCAINE HCL/PF 1% 10 MG/ML 5ML VIAL ONE (12:33)
[2020-07-04] MEDS ORDERED: ONDANSETRON HCL 4MG/2ML INJ ONE (12:33)
[2020-07-04] MEDS ORDERED: SODIUM CHLORIDE 0.9% 10ML VIAL ONE (12:33)
[2020-07-04] MEDS ORDERED: ONDANSETRON HCL 4MG/2ML INJ IV PRN (13:00)
[2020-07-04] MEDS ORDERED: HYDROMORPHONE HCL/PF 2MG/ML CPJ IV PRN (13:00)
[2020-07-04] MEDS ORDERED: LABETALOL 5MG/ML SYR 20 MG/4 ML SYRINGE IV PRN (13:00)
[2020-07-04] MEDS ORDERED: MEPERIDINE HCL/PF 25MG/ML CPJ IV PRN (13:00)
[2020-07-04] MEDS ORDERED: EPOETIN ALFA-EPBX 10,000 UNIT/ML VIAL SUBCUT SCH (21:00)
[2020-07-05] VITALS: BP 143/80
[2020-07-05 04:00] VITALS: BP 140/60
[2020-07-05 06:49] LABS: BASOPHILS % 0.3 % (0.0-2.0); HEMATOCRIT. 24.8 % (36.0-48.0); HEMOGLOBIN. 8.3 g/dL (12.0-16.0); LYMPHOCYTES % 11.7 % (20.0-50.0); MEAN CORPUSCULAR HEMOGLOBIN 28.3 pg (28.0-32.0); MEAN CORPUSCULAR VOLUME 84.7 fL (81.0-99.0); MEAN PLATELET VOLUME 8.4 fl (7.4-10.4); MONOCYTES % 6.4 % (2.0-8.0); NEUTROPHILS % 81.6 % (40.0-76.0); PLATELET 218 x1000/uL (130-400); RED BLOOD CELL COUNT 2.93 mill/uL (4.2-5.4)
[2020-07-05] MEDS: SEVELAMER CARBONATE 800 MG TABLET PO SCH (09:29)
[2020-07-05] MEDS: AMLODIPINE 10MG TABLET PO SCH (09:29)
[2020-07-05] MEDS: CINACALCET HCL 30MG TABLET PO SCH (09:29)
[2020-07-05] MEDS: DOCUSATE SODIUM 100MG CAPSULE PO SCH (09:29)
[2020-07-05] MEDS: LOSARTAN POTASSIUM 100 MG TABLET PO SCH (09:29)
[2020-07-05] MEDS: FOLIC ACID/VITAMIN B COMP W-C TABLET PO SCH (09:29)
[2020-07-05 12:00] VITALS: BP 153/51
[2020-07-05 13:33] VITALS: BP 153/53
== END 2020-07-05 14:00 | disposition home or self-care (01) | DRG 206 ==
LOC: ER 18:58 → MICUSO 19:58 → ENRESERV 21:57 → 8WST 07-03 15:45
PROVIDERS: ADMIT Internal Medicine; ATTEND Internal Medicine
PROC: 5A1D70Z Performance of Urinary Filtration, Intermittent, Less than 6 Hours Per Day (ICD-10-PCS; principal; 2020-07-04)
DX: T82.838A Hemorrhage due to vascular prosthetic devices, implants and grafts, initial encounter (principal); Y65.8 Other specified misadventures during surgical and medical care; D63.1 Anemia in chronic kidney disease; E78.5 Hyperlipidemia, unspecified; E83.39 Other disorders of phosphorus metabolism; I12.0 Hypertensive chronic kidney disease with stage 5 chronic kidney disease or end stage renal disease; M41.9 Scoliosis, unspecified; N18.6 End stage renal disease; N25.81 Secondary hyperparathyroidism of renal origin; E78.00 Pure hypercholesterolemia, unspecified; Z20.822 Contact with and (suspected) exposure to COVID-19; D62 Acute posthemorrhagic anemia; Z99.2 Dependence on renal dialysis; Z88.1 Allergy status to other antibiotic agents; Z79.899 Other long term (current) drug therapy; Y92.89 Other specified places as the place of occurrence of the external cause
CPT/HCPCS: 36415; 71045; 80048; 80053; 83735; 84100; 85025; 85027; 86850; 86900; 87426; 93005; 99291; J0690; J0885; J1100; J1644; J2250; J2270; J2405; J2704; J2795; J3010; J3490; J7030; J7042; J7050

== ENCOUNTER 2021-02-05 15:51 | Inpatient (IN) | payer OTHER ==
[~2021-02-05] VITALS: Ht 147.3 cm; Wt 49.1 kg
[2021-02-05 19:00] LABS: BASOPHILS % 0.9 % (0.0-2.0); EOSINOPHILS % 0.9 % (0.0-5.0); HEMATOCRIT. 31.5 % (36.0-48.0); HEMOGLOBIN. 10.4 g/dL (12.0-16.0); LYMPHOCYTES % 12.9 % (20.0-50.0); MEAN CORPUSCULAR HEMOGLOBIN 29.2 pg (28.0-32.0); MEAN CORPUSCULAR VOLUME 88.2 fL (81.0-99.0); MONOCYTES % 7.6 % (2.0-8.0); NEUTROPHILS % 77.7 % (40.0-76.0); PLATELET 234 x1000/uL (130-400); RED BLOOD CELL COUNT 3.57 mill/uL (4.2-5.4); RED CELL DISTRIBUTION WIDTH 16.9 % (11.6-14.6)
[2021-02-05 21:03] LABS: PARTIAL THROMBOPLASTIN TIME 27.9 sec (23.4-31.0); PROTHROMBIN TIME 10.6 sec (9.6-11.0)
[2021-02-06] VITALS (22 sets, daily range): BP systolic 121–177; BP diastolic 49–89
[2021-02-06] MEDS: CLONIDINE 0.2MG TABLET PO PRN (00:06)
[2021-02-06] MEDS ORDERED: CALC667S PO (01:25)
[2021-02-06] MEDS ORDERED: ATOR10TA MT (01:25)
[2021-02-06] MEDS ORDERED: NEPVIT MT (01:26)
[2021-02-06] MEDS ORDERED: VALS320T16 MT (01:26)
[2021-02-06] MEDS ORDERED: PRAZ2CAP2 MT (01:26)
[2021-02-06] MEDS ORDERED: *PATIENT'S OWN MEDICATION STORAGE XX SCH (01:45)
[2021-02-06 08:17] LABS: BASOPHILS % 0.9 % (0.0-2.0); HEMATOCRIT. 30.9 % (36.0-48.0); HEMOGLOBIN. 10.2 g/dL (12.0-16.0); LYMPHOCYTES % 14.4 % (20.0-50.0); MEAN CORPUSCULAR VOLUME 87.6 fL (81.0-99.0); MONOCYTES % 7.9 % (2.0-8.0); NEUTROPHILS % 74.8 % (40.0-76.0); PLATELET 223 x1000/uL (130-400); RED BLOOD CELL COUNT 3.52 mill/uL (4.2-5.4); RED CELL DISTRIBUTION WIDTH 16.5 % (11.6-14.6)
[2021-02-06] MEDS ORDERED: AMLODIPINE 10MG TABLET PO SCH (09:00)
[2021-02-06] MEDS ORDERED: FOLIC ACID/VITAMIN B COMP W-C TABLET PO SCH (09:00)
[2021-02-06 10:01] LABS: PHOSPHORUS 8.6 mg/dL (2.5-4.9)
[2021-02-06] MEDS ORDERED: CEFAZOLIN 1000MG PREMIX 50 ML IV ONE (13:00)
[2021-02-06] MEDS ORDERED: FENTANYL CITRATE/PF 50MCG/ML 2ML VIAL ONE (13:08)
[2021-02-06] MEDS ORDERED: LIDOCAINE HCL 1% 20ML VIAL (Pyxis) INJ ONE (13:10)
[2021-02-06] MEDS ORDERED: IOHEXOL-300 100 ML BOTTLE ONE (13:10)
[2021-02-06] MEDS ORDERED: HEPARIN 1000 UNITS/ML 10ML ONE (15:07)
[2021-02-06] MEDS ORDERED: FENTANYL CITRATE/PF 50MCG/ML 2ML VIAL IV ONE (15:30)
[2021-02-06] MEDS ORDERED: FENTANYL CITRATE/PF 50MCG/ML 2ML VIAL IV NR (15:30)
[2021-02-06] MEDS ORDERED: PRAZOSIN HCL 1MG CAPSULE PO SCH (21:00)
[2021-02-06] MEDS ORDERED: ATORVASTATIN CALCIUM 20MG TABLET PO SCH (21:00)
[2021-02-07] VITALS: BP 157/60
[2021-02-07 04:00] VITALS: BP 140/91
[2021-02-07 06:56] VITALS: BP 153/54
[2021-02-07] MEDS: CLONIDINE 0.2MG TABLET PO PRN (06:57)
[2021-02-07] MEDS ORDERED: SEVELAMER CARBONATE 800 MG TABLET PO SCH (07:10)
[2021-02-07 07:58] VITALS: BP 153/54
[2021-02-07 08:20] LABS: HEPATITIS B SURFACE ANTIGEN NEGATIVE
== END 2021-02-07 09:00 | disposition home or self-care (01) | DRG 182 ==
LOC: ER 15:51 → 7EST 22:38 → ENRESERV 23:35
PROVIDERS: ADMIT Internal Medicine; ATTEND Internal Medicine
PROC: 5A1D70Z Performance of Urinary Filtration, Intermittent, Less than 6 Hours Per Day (ICD-10-PCS; principal; 2021-02-06)
PROC: 03CY3ZZ Extirpation of Matter from Upper Artery, Percutaneous Approach (ICD-10-PCS; 2021-02-06)
PROC: B51W1ZZ Fluoroscopy of Dialysis Shunt/Fistula using Low Osmolar Contrast (ICD-10-PCS; 2021-02-06)
PROC: B51N1ZZ Fluoroscopy of Left Upper Extremity Veins using Low Osmolar Contrast (ICD-10-PCS; 2021-02-06)
PROC: B5181ZZ Fluoroscopy of Superior Vena Cava using Low Osmolar Contrast (ICD-10-PCS; 2021-02-06)
PROC: B5171ZZ Fluoroscopy of Left Subclavian Vein using Low Osmolar Contrast (ICD-10-PCS; 2021-02-06)
PROC: 05CY3ZZ Extirpation of Matter from Upper Vein, Percutaneous Approach (ICD-10-PCS; 2021-02-06)
DX: T82.868A Thrombosis due to vascular prosthetic devices, implants and grafts, initial encounter (principal); I12.0 Hypertensive chronic kidney disease with stage 5 chronic kidney disease or end stage renal disease; E83.39 Other disorders of phosphorus metabolism; D64.9 Anemia, unspecified; N25.81 Secondary hyperparathyroidism of renal origin; Y84.1 Kidney dialysis as the cause of abnormal reaction of the patient, or of later complication, without mention of misadventure at the time of the procedure; E78.5 Hyperlipidemia, unspecified; Z20.822 Contact with and (suspected) exposure to COVID-19; N18.6 End stage renal disease; Z99.2 Dependence on renal dialysis; Y92.89 Other specified places as the place of occurrence of the external cause; Z88.1 Allergy status to other antibiotic agents; Z79.2 Long term (current) use of antibiotics; Z79.899 Other long term (current) drug therapy
CPT/HCPCS: 36415; 36905; 80048; 80061; 84100; 85025; 86705; 86709; 86803; 87340; 87426; 93005; 93971; 99152; 99153; 99285; C1725; C1766; C1769; C2630; J0690; J1644; J3010; J3490; Q9967; G0500

== ENCOUNTER 2021-12-30 18:58 | Inpatient (IN) | payer OTHER ==
[~2021-12-30] VITALS: Ht 147.3 cm; Wt 49.4 kg
[~2021-12-30 18:58] MED LIST changes: +ATOR10TA MT; +CALC667S PO; +NEPVIT MT; +PRAZ2CAP2 MT; +VALS320T16 MT
[2021-12-30 23:09] LABS: HEMATOCRIT 40.9 % (36.0-48.0); MEAN CORPUSCULAR HEMOGLOBIN 26.9 pg (28.0-32.0); MEAN CORPUSCULAR VOLUME 84.4 fL (81.0-99.0); PLATELET 203 x1000/uL (130-400); RED BLOOD CELL COUNT 4.85 mill/uL (4.2-5.4); RED CELL DISTRIBUTION WIDTH 18.2 % (11.6-14.6)
[2021-12-30 23:26] LABS: CHLORIDE 100 mEq/L (98-107)
[2021-12-30] MEDS ORDERED: HEPARIN 25,000 UNITS PREMIX 250 ML IV PRN (23:30)
[2021-12-30] MEDS ORDERED: HEPARIN 5000 UNITS/ML VIAL IV SCH (23:30)
[2021-12-30 23:57] LABS: PARTIAL THROMBOPLASTIN TIME 28.7 sec (23.4-31.0); PROTHROMBIN TIME 10.4 sec (9.6-11.0)
[2021-12-30] MEDS ORDERED: FUROSEMIDE 100MG/10ML VIAL IV NR (23:58)
[2021-12-31] MEDS ORDERED: ALBUTEROL (0.083%) 2.5MG/3ML NEB HHN NR
[2021-12-31] MEDS ORDERED: INSULIN REGULAR (HUMULIN R) 300UNITS/3ML VIAL IV NR
[2021-12-31] MEDS ORDERED: SODIUM BICARBONATE 8.4% 1 MEQ/ML 50ML SYR IV NR
[2021-12-31] MEDS ORDERED: CALCIUM CHLORIDE 1GM/10ML SYR IV NR
[2021-12-31] MEDS ORDERED: DEXTROSE 50% WATER 50ML SYRINGE IV NR
[2021-12-31] MEDS ORDERED: HEPARIN 25,000 UNITS PREMIX 250 ML IV SCH (03:00)
[2021-12-31] MEDS: HEPARIN 5000 UNITS/ML VIAL IV NR ×2 (05:28→05:35)
[2021-12-31] MEDS ORDERED: HEPARIN BOLUS PRN aPTT <36 IV (10:00)
[2021-12-31] MEDS ORDERED: HEPARIN BOLUS PRN aPTT 37-44 IV (10:00)
[2021-12-31] MEDS ORDERED: ACETAMINOPHEN 325MG TABLET PO PRN (11:45)
[2021-12-31] MEDS ORDERED: ONDANSETRON HCL 4MG/2ML INJ IV PRN (11:45)
[2021-12-31] MEDS ORDERED: HYDRALAZINE HCL 100MG TABLET PO SCH (12:00)
[2021-12-31] MEDS: NIFEDIPINE XL 60MG TAB PO SCH (17:10)
[2021-12-31] MEDS: LOSARTAN POTASSIUM 50 MG TABLET PO SCH (20:14)
[2021-12-31 21:30] VITALS: BP 154/59
[2021-12-31 21:40] VITALS: BP 154/59
[2021-12-31] MEDS: HYDRALAZINE HCL 100MG TABLET PO SCH (23:14)
[2022-01-01] VITALS (24 sets, daily range): BP systolic 155–182; BP diastolic 57–74
[2022-01-01] MEDS ORDERED: SODIUM POLYSTYRENE SULFONATE 15 G/60 ML BOT PO NR (01:45)
[2022-01-01 03:04] LABS: HEPATITIS B SURFACE ANTIGEN NEGATIVE
[2022-01-01] MEDS: HYDRALAZINE HCL 100MG TABLET PO SCH ×2 (06:25→14:00)
[2022-01-01 06:52] LABS: PROTHROMBIN TIME 10.8 sec (9.6-11.0)
[2022-01-01 06:57] LABS: BASOPHILS % 1.4 % (0.0-2.0); EOSINOPHILS % 0.4 % (0.0-5.0); HEMATOCRIT. 38.9 % (36.0-48.0); HEMOGLOBIN. 12.5 g/dL (12.0-16.0); LYMPHOCYTES % 9.9 % (20.0-50.0); MEAN CORPUSCULAR HEMOGLOBIN 27.2 pg (28.0-32.0); MEAN CORPUSCULAR VOLUME 84.4 fL (81.0-99.0); MEAN PLATELET VOLUME 8.6 fl (7.4-10.4); MONOCYTES % 4.6 % (2.0-8.0); NEUTROPHILS % 83.7 % (40.0-76.0); PLATELET 258 x1000/uL (130-400); RED BLOOD CELL COUNT 4.61 mill/uL (4.2-5.4); RED CELL DISTRIBUTION WIDTH 18.1 % (11.6-14.6)
[2022-01-01] MEDS ORDERED: CEFAZOLIN 1000MG PREMIX 50 ML IV SCH (07:15)
[2022-01-01] MEDS: SEVELAMER CARBONATE 800 MG TABLET PO SCH ×2 (07:50→12:50)
[2022-01-01] MEDS ORDERED: MEDICATION NOT ON FORMULARY EA (Sevelamer Hcl (Renagel) 800 MG) PO SCH (09:00)
[2022-01-01] MEDS: LOSARTAN POTASSIUM 50 MG TABLET PO SCH ×2 (09:00→17:05)
[2022-01-01] MEDS ORDERED: ALTEPLASE 2MG/VIAL ITC SCH (09:00)
[2022-01-01] MEDS ORDERED: ATORVASTATIN CALCIUM 10MG TABLET PO SCH (09:00)
[2022-01-01] MEDS: NIFEDIPINE XL 60MG TAB PO SCH ×2 (09:00→17:08)
[2022-01-01] MEDS ORDERED: OMEPRAZOLE 20MG CAPSULE EXTENDED RELEASE PO SCH (09:00)
[2022-01-01] MEDS: AMLODIPINE 10MG TABLET PO SCH ×2 (09:00→17:07)
[2022-01-01] MEDS ORDERED: CINACALCET HCL 90MG TABLET PO SCH (09:00)
[2022-01-01] MEDS ORDERED: IOHEXOL-300 100 ML BOTTLE ONE (09:16)
[2022-01-01] MEDS ORDERED: LIDOCAINE HCL/PF 1% 10 MG/ML 5ML VIAL ONE (09:16)
[2022-01-01] MEDS ORDERED: HEPARIN 1000 UNITS/ML 10ML ONE (09:16)
[2022-01-01] MEDS ORDERED: FENTANYL CITRATE/PF 50MCG/ML 2ML VIAL ONE (09:19)
[2022-01-01] MEDS ORDERED: MIDAZOLAM HCL 2 MG/2 ML VIAL ONE (10:35)
[2022-01-01] MEDS ORDERED: MIDAZOLAM HCL 5 MG/ML VIAL IV ONE (11:30)
[2022-01-01] MEDS ORDERED: FENTANYL CITRATE/PF 50MCG/ML 2ML VIAL IV ONE (11:30)
[2022-01-01] MEDS ORDERED: PRAZOSIN HCL 1MG CAPSULE PO SCH (21:00)
[2022-01-01] MEDS ORDERED: PRAZOSIN HCL 2 MG PO SCH (21:00)
== END 2022-01-01 18:00 | disposition home or self-care (01) | DRG 182 ==
LOC: ER 18:58 → EDBEDREQ 20:00 → MICUSO 23:40 → 6WST 12-31 22:29
PROVIDERS: ADMIT Internal Medicine; ATTEND Internal Medicine
PROC: 05743ZZ Dilation of Left Innominate Vein, Percutaneous Approach (ICD-10-PCS; principal; 2022-01-01)
PROC: 057Y3ZZ Dilation of Upper Vein, Percutaneous Approach (ICD-10-PCS; 2022-01-01)
PROC: B51N1ZA Fluoroscopy of Left Upper Extremity Veins using Low Osmolar Contrast, Guidance (ICD-10-PCS; 2022-01-01)
PROC: B5181ZA Fluoroscopy of Superior Vena Cava using Low Osmolar Contrast, Guidance (ICD-10-PCS; 2022-01-01)
PROC: 3E06317 Introduction of Other Thrombolytic into Central Artery, Percutaneous Approach (ICD-10-PCS; 2022-01-01)
PROC: B5171ZA Fluoroscopy of Left Subclavian Vein using Low Osmolar Contrast, Guidance (ICD-10-PCS; 2022-01-01)
PROC: 3E04317 Introduction of Other Thrombolytic into Central Vein, Percutaneous Approach (ICD-10-PCS; 2022-01-01)
PROC: 037Y3ZZ Dilation of Upper Artery, Percutaneous Approach (ICD-10-PCS; 2022-01-01)
PROC: B31J1ZZ Fluoroscopy of Left Upper Extremity Arteries using Low Osmolar Contrast (ICD-10-PCS; 2022-01-01)
DX: T82.868A Thrombosis due to vascular prosthetic devices, implants and grafts, initial encounter (principal); I12.0 Hypertensive chronic kidney disease with stage 5 chronic kidney disease or end stage renal disease; I82.290 Acute embolism and thrombosis of other thoracic veins; N25.81 Secondary hyperparathyroidism of renal origin; N18.6 End stage renal disease; T82.858A Stenosis of other vascular prosthetic devices, implants and grafts, initial encounter; I16.0 Hypertensive urgency; E87.5 Hyperkalemia; E83.52 Hypercalcemia; Z20.822 Contact with and (suspected) exposure to COVID-19; Y83.2 Surgical operation with anastomosis, bypass or graft as the cause of abnormal reaction of the patient, or of later complication, without mention of misadventure at the time of the procedure; Z99.2 Dependence on renal dialysis; Y92.89 Other specified places as the place of occurrence of the external cause; Z88.1 Allergy status to other antibiotic agents; Z79.899 Other long term (current) drug therapy
CPT/HCPCS: 36415; 36905; 36907; 80048; 80053; 85025; 85027; 86705; 86709; 86803; 87340; 87426; 93005; 93922; 99291; J0690; J1644; J1815; J1940; J2250; J2997; J3010; J3490; Q9967